=== PATIENT | female | born 1950 | race Caucasian/White ===

== ENCOUNTER → 2016-07-31 | Outpatient (CLI) | payer MEDICARE, OTHER ==
--- NOTE | 2016-07-31 11:32 | BD ---
EXAMINATION TYPE: MG DEXA axial skeleton. DATE OF EXAM: 07/31/2016 8:52 AM COMPARISON: 09.22.2013 CLINICAL HISTORY: m81.0 related osteoporosis Height: 60.5 Weight: 125 FRAX RISK QUESTIONS: Alcohol (3 or more units per day): NO Family History (Parent hip fracture): NONE KNOWN Glucocorticoids (More than 3mos): NO (Ex: prednisone, prednisolone, methylprednisolone, dexamethasone, and hydrocortisone). History of Fracture in Adulthood: YES Secondary Osteoporosis: NO 1. Type 1 Diabetes: NO 2. Hyperthyroidism: NO 3. Menopause before 45: NO 4. Malnutrition: NO 5. Chronic liver disease: NO Rheumatoid Arthritis: NO Current Tobacco Use: NO RISK FACTORS HISTORY OF: Hip Fracture DISLOCATION AND FX....TOTAL HIP LT When: MAY 2015 Family History of Osteoporosis: NONE KNOWN Drink Alcohol: RARE Active: YES Diet low in dairy products/other sources of calcium: YES, LACTOSE INTOLERANT Postmenopausal woman: 53 Take estrogen and/or progesterone medications: HX OF BC PILLS IN PAST FOR ABOUT 7 YRS Adrenal Insufficiency: NO MEDICATIONS: Osteoporosis Medications: YES Which medication: ACTENOL How Lon YRS Additional Medications: BP MEDS, CALCIUM AND VIT D Additional History: THR 2015 LT SIDE, OSTEOPOROSIS EXAM MEASUREMENTS: Bone mineral densitometry was performed using the [employer] System. Bone mineral density as measured about the Lumbar spine is: ----- L1-L4(G/cm2): 0.996 T Score Values are as follows: ----- L1: -1.4 ----- L2: -2.3 ----- L3: -1.4 ----- L4: -1.3 ----- L1-L4: -1.5 Bone mineral density has: Increased 2.2% since study of: 09.22.2013 Bone mineral density about the R hip (g/cm2): 0.839 T Score values are as follows: -----R Neck: -1.4 -----R Intertrochanter: -2.1 Bone mineral density has: Increased 5.5% since study of: 09.22.2013 FRAX %'S: FOR MAJOR OSTEOPOROTIC FX: 15.0%.......FOR HIP FX: 1.8% PROBABILITY OF FX IN 10 YRS TIME IMPRESSION: Osteopenia (T Score between -2.5 and -1 as noted by T score values There is slightly increased risk of fracture and the patient may be considered for treatment. Re-Screen 1-2 years. FOR BOTH HER RT HIP AND SPINE NOTE: T-SCORE=SD OF THE YOUNG ADULT MEAN.
--- NOTE | 2016-08-01 10:10 | MM ---
Reason for exam: screening (asymptomatic). History: Patient is postmenopausal and is nulliparous. Took hormonal contraceptives for 7 years beginning at age 18. Physical Findings: A clinical breast exam by your physician is recommended on an annual basis and results should be correlated with mammographic findings. MG 3D Screening Mammo W/Cad Bilateral CC and MLO view(s) were taken. No prior studies available for comparison. There are scattered fibroglandular densities. There is no discrete abnormality. ASSESSMENT: Negative, BI-RAD 1 RECOMMENDATION: Routine screening mammogram of both breasts in 1 year.
== END | disposition home or self-care (01) ==
LOC: RADMAMWWP 07:36
PROVIDERS: ATTEND Family Medicine
DX: Z12.31 Encounter for screening mammogram for malignant neoplasm of breast (principal); M85.89 Other specified disorders of bone density and structure, multiple sites
CPT/HCPCS: 77080; 77063; G0202

== ENCOUNTER → 2017-10-13 | Outpatient (CLI) | payer MEDICARE, OTHER ==
--- NOTE | 2017-10-14 09:17 | MM ---
Reason for exam: screening (asymptomatic). Last mammogram was performed 1 year and 2 months ago. History: Patient is postmenopausal and is nulliparous. Took hormonal contraceptives for 7 years beginning at age 18. Physical Findings: A clinical breast exam by your physician is recommended on an annual basis and results should be correlated with mammographic findings. MG 3D Screening Mammo W/Cad Bilateral CC and MLO view(s) were taken. Prior study comparison: July 31, 2016, bilateral MG 3d screening mammo w/cad. There are scattered fibroglandular densities. A 7mm oval mass 9-10 o'clock right breast appears to have increased in size. ASSESSMENT: Incomplete: need additional imaging evaluation, BI-RAD 0 RECOMMENDATION: Special view mammogram and ultrasound of the right breast. [facility] will attempt to contact patient to return for supplemental views and ultrasound.
== END ==
LOC: RADMAMWWP 06:51
PROVIDERS: ATTEND Family Medicine
DX: Z12.31 Encounter for screening mammogram for malignant neoplasm of breast (principal)
CPT/HCPCS: 77063; 77067

== ENCOUNTER → 2017-10-22 | Outpatient (CLI) | payer MEDICARE, OTHER ==
--- NOTE | 2017-10-22 11:34 | MM ---
Reason for exam: additional evaluation requested from abnormal screening. Last mammogram was performed less than 1 month ago. History: Patient is postmenopausal and is nulliparous. Took hormonal contraceptives for 7 years beginning at age 18. Physical Findings: Nurse did not find any significant physical abnormalities on exam. MG 3D Work Up W/Cad RT Spot compression CC, spot compression MLO, and LM view(s) were taken of the right breast. Prior study comparison: October 13, 2017, bilateral MG 3d screening mammo w/cad. July 31, 2016, bilateral MG 3d screening mammo w/cad. Finding: There is a 9 mm circumscribed oval mass in the outer quadrant, middle position of the right breast persists on additional views. These results were verbally communicated with the patient and result sheet given to the patient on 10/22/17. ASSESSMENT: Incomplete: need additional imaging evaluation, BI-RAD 0 RECOMMENDATION: Ultrasound of the right breast.
--- NOTE | 2017-10-22 11:38 | USB ---
Reason for exam: additional evaluation requested from abnormal screening. History: Patient is postmenopausal and is nulliparous. Took hormonal contraceptives for 7 years beginning at age 18. US Breast Workup Limited RT Right limited breast ultrasound including focal area of concern, retroareolar and axilla demonstrates a 0.7 x 0.3 x 0.6cm oval, lobular, cystic, mixed lesion at 8 o'clock. Suspect septated cyst, no nodular or suspicious vascular component. These results were verbally communicated with the patient and result sheet given to the patient on 10/22/17. ASSESSMENT: Probably benign, BI-RAD 3 RECOMMENDATION: Follow-up diagnostic mammogram and ultrasound of the right breast in 6 months.
== END | disposition home or self-care (01) ==
LOC: RADMAMWWP 06:58
PROVIDERS: ATTEND Family Medicine
DX: R92.8 Other abnormal and inconclusive findings on diagnostic imaging of breast (principal)
CPT/HCPCS: 77065; 76642; G0279; 77061

== ENCOUNTER → 2018-06-02 | Outpatient (CLI) | payer MEDICARE, OTHER ==
--- NOTE | 2018-06-02 13:56 | MM ---
Reason for exam: follow-up at short interval from prior study. Last mammogram was performed 7 months ago. History: Patient is postmenopausal and is nulliparous. Took hormonal contraceptives for 7 years beginning at age 18. Physical Findings: Nurse did not find any significant physical abnormalities on exam. MG 3D Diag Mammo W/Cad RT CC and MLO view(s) were taken of the right breast. Prior study comparison: October 22, 2017, right breast MG 3d work up w/cad RT. October 13, 2017, bilateral MG 3d screening mammo w/cad. The breast tissue is heterogeneously dense. This may lower the sensitivity of mammography. There is chronic nodularity in the right breast. There is no discrete abnormality. These results were verbally communicated with the patient and result sheet given to the patient on 06/02/18. ASSESSMENT: Benign, BI-RAD 2 RECOMMENDATION: Return to routine screening mammogram schedule for both breasts. Back on schedule.
== END ==
LOC: RADMAMWWP 12:33
PROVIDERS: ATTEND Family Medicine
DX: N64.9 Disorder of breast, unspecified (principal)
CPT/HCPCS: 77065; G0279; 77061

== ENCOUNTER → 2019-04-12 | Outpatient (CLI) | payer MEDICARE, OTHER ==
--- NOTE | 2019-04-12 07:46 | BD ---
EXAMINATION TYPE: Axial Bone Density DATE OF EXAM: 04/12/2019 COMPARISON: 07.31.2016 CLINICAL HISTORY: 68 YR OLD FEMALE.....ICD-10 CODE: M81.0 AGE RELATED OSTEOPOROSIS Height: 61 Weight: 133 FRAX RISK QUESTIONS: NOTHING TO NOTE HERE RISK FACTORS HISTORY OF: Surgery to LT HIP AT 63 YRS OLD Active: YES Diet low in dairy products/other sources of calcium: LACTOSE INTOLERANT, SO YES Postmenopausal woman: YES AT AGE 48 Hyperparathyroidism: NO Adrenal Insufficiency: NO MEDICATIONS: Osteoporosis Medications: ALINDRINATE ONCE WEEKLY, FOR ABOUT 9 YRS Additional Medications: BP MEDS, CALCIUM AND VIT D Additional History: LT HIP REPLACEMENT, OSTEOARTHRITIS EXAM MEASUREMENTS: Bone mineral densitometry was performed using the [employer] System. Bone mineral density as measured about the Lumbar spine is: ----- L1-L4(G/cm2): 1.042 T Score Values are as follows: ----- L1: -1.6 ----- L2: -2.3 ----- L3: -0.4 ----- L4: -0.7 ----- L1-L4: -1.2 Bone mineral density has: Increased 6.6% since study of: 07.31.2016 Bone mineral density about the R hip (g/cm2): 0.799 T Score values are as follows: -----R Neck: -1.4 -----R Total: -1.7 Bone mineral density has: Decreased -1.6% since study of: 07.31.2016 FRAX%s: THERE IS A 10.1% CHANCE FOR A MAJOR OSTEOPOROTIC FX AND A 1.5% FOR HIP....PROBABILITY FOR FX IN 10 YRS TIME IMPRESSION: Osteopenia (T Score between -2.5 and 1). There is slightly increased risk of fracture and patient may be considered for treatment. Re-Screen 2-5 years. NOTE: T-SCORE=SD OF THE YOUNG ADULT MEAN.
--- NOTE | 2019-04-13 09:09 | MM ---
Reason for exam: screening (asymptomatic). Last mammogram was performed 10 months ago. History: Patient is postmenopausal and is nulliparous. Took hormonal contraceptives for 7 years beginning at age 18. Physical Findings: A clinical breast exam by your physician is recommended on an annual basis and results should be correlated with mammographic findings. MG 3D Screening Mammo W/Cad Bilateral CC and MLO view(s) were taken. Prior study comparison: June 02, 2018, right breast MG 3d diag mammo w/cad RT. October 22, 2017, right breast MG 3d work up w/cad RT. There are scattered fibroglandular densities. No significant changes when compared with prior studies. ASSESSMENT: Negative, BI-RAD 1 RECOMMENDATION: Routine screening mammogram of both breasts in 1 year.
== END | disposition home or self-care (01) ==
LOC: RADMAMWWP 06:55
PROVIDERS: ATTEND Family Medicine
DX: Z12.31 Encounter for screening mammogram for malignant neoplasm of breast (principal); M85.89 Other specified disorders of bone density and structure, multiple sites
CPT/HCPCS: 77063; 77067; 77080

== ENCOUNTER → 2020-03-01 | Outpatient (CLI) | payer MEDICARE, OTHER ==
[~2020-03-01] MED LIST: DENOSUMAB 60 MG/ML 1 ML SYRINGE SQ ONE
[2020-03-01 08:45] VITALS: BP 124/78; PULSE 78; RESP 16; TEMP 97.9
== END | disposition home or self-care (01) ==
LOC: PROCWHC3 08:36
PROVIDERS: ATTEND Family Medicine
DX: M81.0 Age-related osteoporosis without current pathological fracture (principal)
CPT/HCPCS: 96372; J0897

== ENCOUNTER → 2020-06-11 | Outpatient (CLI) | payer MEDICARE, OTHER ==
--- NOTE | 2020-06-12 14:32 | MM ---
Reason for exam: screening (asymptomatic). Last mammogram was performed 1 year and 2 months ago. History: Patient is postmenopausal and is nulliparous. Took hormonal contraceptives for 7 years beginning at age 18. Physical Findings: A clinical breast exam by your physician is recommended on an annual basis and results should be correlated with mammographic findings. MG 3D Screening Mammo W/Cad Bilateral CC and MLO view(s) were taken. Prior study comparison: April 12, 2019, bilateral MG 3d screening mammo w/cad. June 02, 2018, right breast MG 3d diag mammo w/cad RT. There are scattered fibroglandular densities. No significant changes when compared with prior studies. ASSESSMENT: Benign, BI-RAD 2 RECOMMENDATION: Routine screening mammogram of both breasts in 1 year.
== END | disposition home or self-care (01) ==
LOC: RADMAMWWP 11:45
PROVIDERS: ATTEND Family Medicine
DX: Z12.31 Encounter for screening mammogram for malignant neoplasm of breast (principal)
CPT/HCPCS: 77063; 77067

== ENCOUNTER → 2020-09-06 | Outpatient (CLI) | payer MEDICARE, OTHER ==
[~2020-09-06] MED LIST changes: +DENOSUMAB 60 MG/ML 1 ML SYRINGE SQ NR; -DENOSUMAB 60 MG/ML 1 ML SYRINGE SQ ONE
[2020-09-06 07:32] VITALS: BP 131/83; PULSE 74; RESP 18; TEMP 97.5
== END ==
LOC: PROCWHC3 07:20
PROVIDERS: ATTEND Family Medicine
DX: M81.0 Age-related osteoporosis without current pathological fracture (principal)
CPT/HCPCS: 96372

== ENCOUNTER → 2021-03-14 | Outpatient (CLI) | payer MEDICARE, OTHER ==
[2021-03-14 07:46] VITALS: BP 144/79; PULSE 71; RESP 16; TEMP 97.9
== END ==
LOC: PROCWHC3 07:31
PROVIDERS: ATTEND Family Medicine
DX: M81.0 Age-related osteoporosis without current pathological fracture (principal); Z91.018 Allergy to other foods
CPT/HCPCS: 96372; J0897

== ENCOUNTER → 2021-08-13 | Outpatient (CLI) | payer MEDICARE, OTHER ==
--- NOTE | 2021-08-13 10:33 | MM ---
Reason for exam: screening (asymptomatic). Last mammogram was performed 1 year and 2 months ago. History: Patient is postmenopausal and is nulliparous. Took hormonal contraceptives for 7 years beginning at age 18. Physical Findings: A clinical breast exam by your physician is recommended on an annual basis and results should be correlated with mammographic findings. MG 3D Screening Mammo W/Cad Bilateral CC and MLO view(s) were taken. Prior study comparison: June 11, 2020, bilateral MG 3d screening mammo w/cad. April 12, 2019, bilateral MG 3d screening mammo w/cad. The breast tissue is heterogeneously dense. This may lower the sensitivity of mammography. There is no discrete abnormality. ASSESSMENT: Negative, BI-RAD 1 RECOMMENDATION: Routine screening mammogram of both breasts in 1 year.
== END | disposition home or self-care (01) ==
LOC: RADMAMWWP 07:28
PROVIDERS: ATTEND Family Medicine
DX: Z12.31 Encounter for screening mammogram for malignant neoplasm of breast (principal); Z78.0 Asymptomatic menopausal state
CPT/HCPCS: 77063; 77067

== ENCOUNTER → 2021-08-14 | Outpatient (CLI) | payer MEDICARE, OTHER ==
--- NOTE | 2021-08-14 10:52 | BD ---
EXAMINATION TYPE: Axial Bone Density DATE OF EXAM: 08/14/2021 COMPARISON: 04/12/2019 CLINICAL HISTORY: Height: 60.5 IN Weight: 132 LBS RISK FACTORS HISTORY OF: Surgery to Hip(left): 2016 Active: YES Diet low in dairy products/other sources of calcium: YES Postmenopausal woman: AGE 48 MEDICATIONS: Osteoporosis Medications: YES Which medication: PROLIA FOSAMAX How Lon YEARS Additional Medications: PROLIA, CALCIUM, VIT D, BLOOD PRESSURE MEDS, SLEEP AID MED EXAM MEASUREMENTS: Bone mineral densitometry was performed using the [employer] System. Bone mineral density as measured about the Lumbar spine is: ----- L1-L4(G/cm2): 1.037 T Score Values are as follows: ----- L2: -1.6 ----- L3: -1.1 ----- L4: -0.8 ----- L1-L4: -1.2 Bone mineral density has: Decreased -0.6% since study of: 04/12/2019 Bone mineral density about the R hip (g/cm2): 0.820 T Score values are as follows: -----R Neck: -1.6 -----R Total: -1.6 Bone mineral density has: Increased 1.4% since study of: 04/12/2019 IMPRESSION: Osteopenia NOTE: T-SCORE=SD OF THE YOUNG ADULT MEAN.
== END | disposition home or self-care (01) ==
LOC: RADBDWWP 07:26
PROVIDERS: ATTEND Family Medicine
DX: M85.89 Other specified disorders of bone density and structure, multiple sites (principal); Z78.0 Asymptomatic menopausal state
CPT/HCPCS: 77080

== ENCOUNTER → 2021-10-01 | Outpatient (CLI) | payer MEDICARE, OTHER ==
[2021-10-01 07:39] VITALS: BP 126/79; PULSE 72; RESP 16; TEMP 97.9
== END ==
LOC: PROCWHC3 07:27
PROVIDERS: ATTEND Family Medicine
DX: M81.0 Age-related osteoporosis without current pathological fracture (principal); Z91.014 Allergy to mammalian meats
CPT/HCPCS: 96372; J0897

== ENCOUNTER → 2022-07-11 | Outpatient (CLI) | payer MEDICARE, OTHER ==
[2022-07-11 09:36] VITALS: BP 136/82; PULSE 79; RESP 16; TEMP 97.5
== END ==
LOC: PROCWHC3 09:24
PROVIDERS: ATTEND Nurse Practitioner Family
DX: M81.0 Age-related osteoporosis without current pathological fracture (principal); Z91.014 Allergy to mammalian meats
CPT/HCPCS: 96372; J0897

== ENCOUNTER → 2022-07-15 | Outpatient (CLI) | payer MEDICARE, OTHER ==
--- NOTE | 2022-07-15 10:58 | XR ---
EXAMINATION TYPE: XR Hip LT and AP Pelvis DATE OF EXAM: 07/15/2022 COMPARISON: NONE HISTORY: Pain TECHNIQUE: A single AP view of the pelvis is obtained. Two views of the left hip are obtained. FINDINGS: There is no acute fracture/dislocation evident in the pelvis. The hip and sacroiliac join ts appear symmetric and unremarkable. Surgical changes in the left hip. Soft tissue ossification is i ncidentally noted.. There is moderate concentric and superior narrowing of the joint space on the right. No erosive crooks es. IMPRESSION: 1. Postsurgical changes left hip. 2. Arthropathy right hip.
== END | disposition home or self-care (01) ==
LOC: RADXRMAIN 10:27
PROVIDERS: ATTEND Nurse Practitioner Family
DX: M12.851 Other specific arthropathies, not elsewhere classified, right hip (principal); M25.552 Pain in left hip; Z98.890 Other specified postprocedural states
CPT/HCPCS: 73502

== ENCOUNTER → 2022-10-14 | Outpatient (CLI) | payer MEDICARE, OTHER ==
--- NOTE | 2022-10-15 08:10 | MM ---
Reason for Exam: Screening (asymptomatic). Last mammogram was performed 1 year(s) and 2 month(s) ago. Patient History: Menarche at age 11. Patient has no children. Postmenopausal. Hormonal Contraceptives for 7 years from age 18 until age 25. Risk Values: Juanita 5 year model risk: 2.0%. NCI Lifetime model risk: 4.5%. Prior Study Comparison: 07/31/2016 Bilateral Screening Mammogram, [facility]. 10/13/2017 Bilateral Screening Mammogram, [facility]. 10/22/2017 Right Diagnostic Mammogram, [facility]. 06/02/2018 Right Diagnostic Mammogram, [facility]. 04/12/2019 Bilateral Screening Mammogram, [facility]. 06/11/2020 Bilateral Screening Mammogram, [facility]. 08/13/2021 Bilateral Screening Mammogram, [facility]. Tissue Density: There are scattered fibroglandular densities. Findings: Analyzed By CAD. There is no suspicious group of microcalcifications or new suspicious mass in either breast. Overall Assessment: Negative, BI-RAD 1 Management: Screening Mammogram of both breasts in 1 year. . Patient should continue monthly self-breast exams. A clinical breast exam by your physician is recommended on an annual basis. This exam should not preclude additional follow-up of suspicious palpable abnormalities. Note on Juanita scores and lifetime risk: 1. A Juanita score greater than 3% is considered moderate risk. If this is the case, consider specialist referral to assess eligibility for a risk reducing agent. 2. If overall lifetime risk for the development of breast cancer is 20% or higher, the patient may qualify for future screening with alternating mammogram and breast MRI. Electronically signed and approved by: Myron Dutton M.D.
== END | disposition home or self-care (01) ==
LOC: RADMAMWWP 07:06
PROVIDERS: ATTEND Family Medicine
DX: Z12.31 Encounter for screening mammogram for malignant neoplasm of breast (principal); Z78.0 Asymptomatic menopausal state
CPT/HCPCS: 77063; 77067

== ENCOUNTER → 2023-05-13 | Outpatient (CLI) | payer MEDICARE, OTHER ==
[2023-05-13 16:24] LABS: Basophils # (A) 0.05 X 10*3/uL (0.00-0.10); Basophils % (A) 0.7 %; Eosinophils # (A) 0.11 X 10*3/uL (0.04-0.35); Eosinophils % (A) 1.5 %; HCT 40.2 % (37.2-46.3); HGB 13.2 g/dL (12.0-15.0); Lymphocytes % (A) 27.5 %; MCH 29.7 pg (27.0-32.0); MCHC 32.8 g/dL (32.0-37.0); MCV 90.5 FL (80.0-97.0); Mean Platelet Volume 9.3 FL (9.5-12.2); Monocytes # (A) 0.64 X 10*3/uL (0.20-1.00); Monocytes % (A) 8.8 %; NRBC Per 100 WBC 0 X 10*3/uL (0.00-0.01); Neutrophils # (A) 4.24 X 10*3/uL (1.80-7.70); Neutrophils % (A) 58.3 %; Platelet Count 355 X 10*3/uL (140-440); RBC 4.44 X 10*6/uL (4.10-5.20); RDW 13.2 % (11.5-14.5); WBC 7.27 X 10*3/uL (4.50-10.00)
[2023-05-13 16:35] LABS: % Iron Saturation 29.43 (12.00-45.00); Iron 108 UG/DL (50-170); Total Iron Binding Capacity 367 UG/DL (228-460)
[2023-05-13 16:54] LABS: ALT 35 U/L (8-44); AST 21 U/L (13-35); Albumin 4.1 g/dL (3.8-4.9); Albumin/Globulin Ratio 1.71 Ratio (1.60-3.17); Alkaline Phosphatase 102 U/L (41-126); BUN/Creat Ratio 19.75 Ratio (12.00-20.00); Bilirubin, Conjugated <0.20 mg/dL (0.20-0.40); Bilirubin,Unconjugated >0.30 mg/dL (0.20-1.00); Blood Urea Nitrogen 15.8 mg/dL (9.0-27.0); Carbon Dioxide 26.3 mmol/L (21.6-31.8); Chloride 94 mmol/L (96-109); Globulin 2.4 g/dL (1.6-3.3); Glucose 90 mg/dL (70-110); Potassium 4.9 mmol/L (3.5-5.5); Sodium 132 mmol/L (135-145); Total Bilirubin 0.5 mg/dL (0.3-1.2); Total Protein 6.5 g/dL (6.2-8.2); Vitamin B12 >1800.0 pg/mL (200.0-944.0)
[2023-05-13 17:56] LABS: EBV-EA (IgG) <0.2 AI; EBV-EBNA(IgG) >8.0; EBV-VCA (IgG) >8.0 AI; EBV-VCA (IgM) <0.2 AI
== END | disposition home or self-care (01) ==
LOC: LABWHC1 09:08
PROVIDERS: ATTEND Family Medicine
DX: Z13.9 Encounter for screening, unspecified (principal); E87.1 Hypo-osmolality and hyponatremia; R53.83 Other fatigue
CPT/HCPCS: 36415; 80048; 80076; 82306; 82607; 82728; 82746; 83540; 83550; 85025; 86160; 86644; 86645; 86663; 86664; 86665

== ENCOUNTER → 2024-03-02 | Outpatient (CLI) | payer MEDICARE, OTHER ==
--- NOTE | 2024-03-06 15:19 | MM ---
Reason for Exam: Screening (asymptomatic). Last mammogram was performed 1 year(s) and 4 month(s) ago. Patient History: Menarche at age 11. Patient has no children. Postmenopausal. Hormonal Contraceptives for 7 years from age 18 until age 25. Risk Values: Juanita 5 year model risk: 2.0%. NCI Lifetime model risk: 4.2%. Prior Study Comparison: 06/11/2020 Bilateral Screening Mammogram, [facility]. 08/13/2021 Bilateral Screening Mammogram, [facility]. 10/14/2022 Bilateral MG 3D screening mammo w/cad, [facility]. Tissue Density: There are scattered areas of fibroglandular density. Findings: Analyzed By CAD. The pattern is symmetrical. No significant interval change No suspicious groups of microcalcifications, spiculated or lobular masses, architectural distortion or other secondary signs of malignancy are mammographically apparent. Overall Assessment: Benign, BI-RAD 2 Management: Screening Mammogram of both breasts in 1 year. A negative mammogram report should not preclude additional follow up of suspicious palpable abnormalities. Patient should continue monthly self breast exam. A clinical breast exam by your physician is recommended on an annual basis and results should be correlated with mammographic findings. Note on Juanita scores and lifetime risk: 1. A Juanita score greater than 3% is considered moderate risk. If this is the case, consider specialist referral to assess eligibility for a risk reducing agent. 2. If overall lifetime risk for the development of breast cancer is 20% or higher, the patient may qualify for future screening with alternating mammogram and breast MRI. [facility], , 03/06/2024 3:16 PM. Electronically signed and approved by: Von Lim D.O. Radiologis
== END | disposition home or self-care (01) ==
LOC: RADMAMWWP 07:04
PROVIDERS: ATTEND Family Medicine
DX: Z12.31 Encounter for screening mammogram for malignant neoplasm of breast
CPT/HCPCS: 77063; 77067

== ENCOUNTER → 2024-03-07 | Outpatient (CLI) | payer MEDICARE, OTHER ==
--- NOTE | 2024-03-14 21:34 | BD ---
EXAMINATION TYPE: Axial Bone Density DATE OF EXAM: 03/07/2024 CLINICAL HISTORY: 73 years old Female. ICD-10 CODE: Z78.0 POST MENOPAUSAL STATE Height: 61 Weight: 133.7 FRAX RISK QUESTIONS: Alcohol (3 or more units per day): no Family History (Parent hip fracture): no Glucocorticoids (More than 3mos): no (Ex: prednisone, prednisolone, methylprednisolone, dexamethasone, and hydrocortisone). History of Fracture in Adulthood: yes Secondary Osteoporosis: 1. Type 1 Diabetes: no 2. Hyperthyroidism: no 3. Menopause before 45: no 4. Malnutrition: no 5. Chronic liver disease: no Rheumatoid Arthritis: no Current Tobacco Use: no RISK FACTORS HISTORY OF: Surgery to Spine/Hip(right/left)/Wrist (right/left): left hip When: 2016 MEDICATIONS: Osteoporosis Medications: prolia How Lon years EXAM MEASUREMENTS: Bone mineral densitometry was performed using the [employer]. Bone mineral density as measured about the Lumbar spine is: ----- L1-L4(G/cm2): 1.028 T Score Values are as follows: ----- L1: -1.6 ----- L2: -2.1 ----- L3: -1.0 ----- L4: -0.7 ----- L1-L4: -1.3 Z Score Values are as follows: ----- L1: 0.3 ----- L2: -0.2 ----- L3: 0.9 ----- L4: 1.2 ----- L1-L4: 0.6 Bone mineral density has: decreased -0.9 % since study of: 08.14.2021 Bone mineral density about the R hip (g/cm2): 0.807 T Score values are as follows: -----R Neck: -1.5 -----R Total: -1.6 Z Score values are as follows: -----R Neck: 0.6 -----R Total: 0.3 Bone mineral density has: decreased -0.4 % since study of: 08.14.2021 . IMPRESSION: Osteopenia (T Score between -2.5 and -1). There is slightly increased risk of fracture and the patient may be considered for treatment. Re-Screen 2-5 years. NOTE: T-SCORE=SD OF THE YOUNG ADULT MEAN. [facility], , 03/14/2024 9:31 PM
== END | disposition home or self-care (01) ==
LOC: RADBDWWP 08:15
PROVIDERS: ATTEND Family Medicine
DX: Z78.0 Asymptomatic menopausal state
CPT/HCPCS: 77080

== ENCOUNTER → 2024-10-24 | Outpatient (CLI) | payer MEDICARE, OTHER ==
--- NOTE | 2024-10-24 08:48 | XR ---
EXAMINATION TYPE: XR chest 2V DATE OF EXAM: 10/24/2024 8:26 AM COMPARISON: None CLINICAL INDICATION: Female, 74 years old with history of R09.89 OTH SYMPTOMS AND SIGNS INVOLVING THE CIRC A; PH[facility] TECHNIQUE: XR chest 2V Frontal and lateral views of the chest. FINDINGS: Lungs/Pleura: There is no evidence of pleural effusion, focal consolidation, or pneumothorax. Pulmonary vascularity: Unremarkable. Heart/mediastinum: Cardiomediastinal silhouette is unremarkable. Musculoskeletal: No acute osseous pathology. IMPRESSION: No acute cardiopulmonary disease/process. [facility], , 10/24/2024 8:46 AM
== END | disposition home or self-care (01) ==
LOC: RADXRMAIN 08:07
PROVIDERS: ATTEND Family Medicine
DX: R09.89 Other specified symptoms and signs involving the circulatory and respiratory systems (principal)
CPT/HCPCS: 71046

== ENCOUNTER → 2024-11-28 | Outpatient (CLI) | payer MEDICARE, OTHER ==
--- NOTE | 2024-11-28 13:26 | CA ---
Transthoracic Echo Report Name: Maira Olivera Age: 74 Gender: F : 1950 Exam Date: 11/28/2024 11:37 Exam Location: [facility] Ht (in): 61 Wt (lb): 140 Ordering Physician: Pierre Guevara DO Attending/Referring Phys: Pierre Guevara DO Team Member Negra Walker, RDBRIAN Procedure CPT: Indications: I38 ENDOCARDITIS, VALVE UNSPECIFIED Cardiac Hx: Technical Quality: Fair Contrast 1: Total Dose (mL): Contrast 2: Total Dose (mL): MEASUREMENTS (Male / Female) Normal Values 2D ECHO LV Diastolic Diameter PLAX 3.5 cm 4.2 - 5.9 / 3.9 - 5.3 cm LV Systolic Diameter PLAX 1.9 cm IVS Diastolic Thickness 1.0 cm 0.6 - 1.0 / 0.6 - 0.9 cm LVPW Diastolic Thickness 0.9 cm 0.6 - 1.0 / 0.6 - 0.9 cm LV Relative Wall Thickness 0.6 RV Internal Dim ED PLAX 2.7 cm LVOT Diameter 1.8 cm LA Systolic Diameter LX 4.0 cm 3.0 - 4.0 / 2.7 - 3.8 cm LV Diastolic Volume MOD BP 38.1 cm??? 67 - 155 / 56 - 104 cm??? LV Systolic Volume MOD BP 12.1 cm??? - 58 / 19 - 49 cm??? LV Ejection Fraction MOD BP 68.1 % >= 55 % LV Cardiac Index MOD BP 962.9 cm???/min???m??? LV Diastolic Volume MOD 4C 44.0 cm??? LV Systolic Volume MOD 4C 13.8 cm??? LV Ejection Fraction MOD 4C 68.6 % LV Cardiac Index MOD 4C 1120.3 cm???/min???m??? LV Diastolic Length 4C 5.8 cm LV Systolic Length 4C 4.9 cm LV Diastolic Volume MOD 2C 33.0 cm??? LV Systolic Volume MOD 2C 10.9 cm??? LV Ejection Fraction MOD 2C 67.1 % LV Cardiac Index MOD 2C 823.1 cm???/min???m??? LV Diastolic Length 2C 5.8 cm LV Systolic Length 2C 4.9 cm LA Volume 45.3 cm??? 18 - 58 / 22 - 52 cm??? LA Volume Index 27.2 cm???/m??? 16 - 28 cm???/m??? M-MODE Aortic Root Diameter MM 2.5 cm LA Systolic Diameter MM 3.6 cm LA Ao Ratio MM 1.4 AV Cusp Separation MM 1.7 cm DOPPLER AV Peak Velocity 141.3 cm/s AV Peak Gradient 8.0 mmHg AV Mean Velocity 107.8 cm/s AV Mean Gradient 5.1 mmHg AV Velocity Time Integral 38.3 cm MV Area PHT 3.7 cm??? Mitral E Point Velocity 95.0 cm/s Mitral A Point Velocity 89.1 cm/s Mitral E to A Ratio 1.1 MV Deceleration Time 204.4 ms TR Peak Velocity 217.0 cm/s TR Peak Gradient 18.8 mmHg Right Ventricular Systolic Press 23.0 mmHg FINDINGS Left Ventricle Left ventricular ejection fraction is estimated at 55-60 %. Mildly increased septal wall thickness. Normal left ventricular systolic function with no obvious regional wall motion abnormalities. Right Ventricle Right ventricle not well visualized. Right ventricular systolic pressure within normal limits. Right Atrium Mild right atrial dilatation. Left Atrium Mildly increased left atrial diameter. Mitral Valve Structurally normal mitral valve. Mild mitral regurgitation. No mitral stenosis. Aortic Valve Trileaflet aortic valve. No aortic valve stenosis or regurgitation. Tricuspid Valve Structurally normal tricuspid valve. No tricuspid stenosis. Mild tricuspid regurgitation. Pulmonic Valve Structurally normal pulmonic valve. Trace pulmonic regurgitation. No pulmonic stenosis. Pericardium No pericardial or pleural effusion. Aorta Normal size aortic root and proximal ascending aorta. CONCLUSIONS Left ventricular ejection fraction 55 to 60% Mildly increased left ventricular wall thickness RVSP 23 Mild mitral regurgitation Mild tricuspid regurgitation No pericardial effusion Previewed by: Dr. Shai Conway DO (Electronically Signed) Final Date: 28 November 2024 13:25
== END | disposition home or self-care (01) ==
LOC: RADECHMAIN 11:17
PROVIDERS: ATTEND Family Medicine
DX: I08.1 Rheumatic disorders of both mitral and tricuspid valves (principal); I37.1 Nonrheumatic pulmonary valve insufficiency
CPT/HCPCS: 93306

== ENCOUNTER → 2024-11-28 | Outpatient (CLI) | payer MEDICARE, OTHER ==
[2024-11-28 11:09] VITALS: BP 137/78; PULSE 76; RESP 16; TEMP 97.6
[2024-11-28] MEDS: DENOSUMAB 60 MG/ML 1 ML SYRINGE SQ NR (11:12)
== END ==
LOC: PROCWHC3 10:56
PROVIDERS: ATTEND Family Medicine
DX: M81.0 Age-related osteoporosis without current pathological fracture (principal)
CPT/HCPCS: 96372; J0897